=== PATIENT | male | born 1955 | race Caucasian/White ===

== ENCOUNTER 2017-05-21 08:39 | Inpatient (IN) | payer BC ==
[2017-05-17 09:05] VITALS: BP 132/76
[2017-05-17 09:24] LABS: BASOPHILS % (AUTO) 3.5 % (0.0-5.0); EOSINOPHILS % (AUTO) 3.6 % (0.0-8.0); HEMATOCRIT 46.8 % (42-54); LYMPHOCYTES % (AUTO) 34.5 % (21.0-51.0); MEAN CORPUSCULAR HEMOGLOBIN 27.7 pg (27.0-33.0); MEAN CORPUSCULAR HGB CONC 33.7 g/dL (32.0-36.0); MEAN CORPUSCULAR VOLUME 82.4 fL (79-99); MONOCYTES % (AUTO) 10.4 % (3.0-13.0); PLATELET COUNT (AUTO) 308 K/uL (130-400); RED BLOOD CELL COUNT(AUTO) 5.68 MIL/uL (4.50-6.20); RED CELL DISTRIBUTION WIDTH 13.8 % (11.0-15.5); WHITE BLOOD COUNT (AUTO) 9.7 K/uL (4.8-10.8)
[2017-05-17 09:25] LABS: APPEARANCE,URINE Clear (CLEAR); BILIRUBIN,URINE Negative (NEGATIVE); COLOR,URINE Yellow (YELLOW); GLUCOSE, URINE (UA) Negative (NEGATIVE); KETONES,URINE Negative (NEGATIVE); LEUKOCYTE ESTERASE ,URINE Negative (NEGATIVE); NITRATE,URINE Negative (NEGATIVE); OCCULT BLOOD,URINE Negative (NEGATIVE); PROTEIN,URINE Negative (NEGATIVE); UROBILINOGEN,URINE 0.2 mg/dL (0.2-1.0)
[2017-05-17 09:33] LABS: CREATININE 0.9 mg/dL (0.5-1.5); POTASSIUM 4.6 mmol/L (3.5-5.1)
[2017-05-17 09:41] LABS: INR 0.96 (0.85-1.15); PARTIAL THROMBOPLASTIN TIME 28.5 SEC (26.3-35.5); PROTHROMBIN TIME 10.1 SEC (9.6-11.6)
[~2017-05-21] VITALS: Ht 185.4 cm; Wt 109.2 kg
[2017-05-21] VITALS (18 sets, daily range): BP systolic 97–155; BP diastolic 62–84
[~2017-05-21 08:39] MED LIST: ASPI-555 PO; ATOR20TA65 PO
[2017-05-21] MEDS ORDERED: SODIUM CHLORIDE 0.9% 1000ML 1,000 ML IV ONE (09:29)
[2017-05-21] MEDS ORDERED: HEPARIN SODIUM 1000UNIT/ML 10ML VIAL ONE (11:32)
[2017-05-21] MEDS ORDERED: NITROGLYCERIN 5 MG/ML 10 ML VIAL IV ONE (11:32)
[2017-05-21] MEDS ORDERED: LIDOCAINE HCL 2% 20ML ONE (11:32)
[2017-05-21] MEDS ORDERED: IOPAMIDOL-370 100 ML VIAL IV ONE (11:32)
[2017-05-21] MEDS ORDERED: SODIUM BICARB 50MEQ 50ML VIAL ONE (11:32)
[2017-05-21] MEDS ORDERED: ISOVUE-370 50ML VIAL IV ONE (11:32)
[2017-05-21] MEDS ORDERED: SODIUM CHLORIDE 0.9% 1000ML 1,000 ML IV SCH (12:25)
[2017-05-21] MEDS ORDERED: CEFUROXIME 1.5GM+NS 100ML 100 ML IV SCH (12:30)
[2017-05-21] MEDS ORDERED: CEFUROXIME SODIUM 1.5 GM VIAL IVP SCH (13:00)
[2017-05-21] MEDS ORDERED: WATER FOR INJECTION,STERILE 20 ML VIAL IJ SCH (13:00)
[2017-05-21 14:37] LABS: HEMOGLOBIN A1C 5.8 % (4.0-6.0)
[2017-05-21 14:47] LABS: CHOLESTEROL 167 mg/dL (<200); HDL CHOLESTEROL 27 mg/dL (29-71); LDL DIRECT 107 mg/dL (0-99); TRIGLYCERIDES 242 mg/dL (30-200)
[2017-05-21] MEDS ORDERED: ATORVASTATIN CALCIUM 20 MG TABLET PO SCH (21:00)
[2017-05-22] VITALS (18 sets, daily range): BP systolic 104–184; BP diastolic 54–105
[2017-05-22 05:45] LABS: HEMATOCRIT 49.3 % (42-54); MEAN CORPUSCULAR HEMOGLOBIN 27.5 pg (27.0-33.0); MEAN CORPUSCULAR HGB CONC 33.3 g/dL (32.0-36.0); MEAN CORPUSCULAR VOLUME 82.6 fL (79-99); PLATELET COUNT (AUTO) 328 K/uL (130-400); RED BLOOD CELL COUNT(AUTO) 5.97 MIL/uL (4.50-6.20); RED CELL DISTRIBUTION WIDTH 13.5 % (11.0-15.5); WHITE BLOOD COUNT (AUTO) 13.8 K/uL (4.8-10.8)
[2017-05-22 05:54] LABS: INR 1.05 (0.85-1.15); PARTIAL THROMBOPLASTIN TIME 29.2 SEC (26.3-35.5)
[2017-05-22 05:58] LABS: BAND NEUTROPHILS % (MANUAL) 3 % (0-2); BASOPHILS % (MANUAL) 1 % (0-2); BILIRUBIN,TOTAL 0.5 mg/dL (0.2-1.0); EOSINOPHILS % (MANUAL) 1 % (1-6); LYMPHOCYTES % (MANUAL) 23 % (22-44); MAN.DIFF COMMENT-IMPRESSION MANUAL DIFFERENTIAL; MONOCYTES % (MANUAL) 11 % (2-9); PLATELET MORPHOLOGY COMMENT ADEQUATE; POTASSIUM 5.1 mmol/L (3.5-5.1); SEGMENTED NEUTROPHILS % 61 % (40-70); TOTAL PROTEIN, SERUM 8.2 g/dL (6.0-8.3)
[2017-05-22] MEDS ORDERED: ASPIRIN 81 MG EC TAB PO SCH (09:00)
[2017-05-22] MEDS ORDERED: PAPAVERINE HCL 30 MG/ML 2ML VIAL ONE (09:07)
[2017-05-22] MEDS ORDERED: OCTYL 2-CYANOACRYLATE 1 EACH TP ONE (09:07)
[2017-05-22] MEDS ORDERED: BACITRACIN 50,000 UNIT VIAL ONE (09:08)
[2017-05-22] MEDS ORDERED: NITROGLYCERIN 50 MG/D5% WATER 1 BOT ONE (09:21)
[2017-05-22] MEDS ORDERED: SODIUM CHLORIDE 0.9% 1000ML 1,000 ML IV ONE (09:22)
[2017-05-22] MEDS ORDERED: WATER FOR INJECTION,STERILE 20 ML VIAL IJ SCH (10:00)
[2017-05-22] MEDS ORDERED: CEFUROXIME SODIUM 1.5 GM VIAL IVP SCH (10:00)
[2017-05-22] MEDS ORDERED: BUPIVACAINE/PF 0.5% 30ML VIAL ONE (10:11)
[2017-05-22] MEDS ORDERED: ESMOLOL HCL 10 MG/ML 10 ML VIAL ONE (10:13)
[2017-05-22] MEDS ORDERED: MILRINONE-D5W 20 MG/100 ML 0 ML IV ONE (10:13)
[2017-05-22] MEDS ORDERED: EPINEPHRINE 1 MG/ML AMPULE ONE (10:13)
[2017-05-22] MEDS ORDERED: PROPOFOL 10 MG/ML 20ML VIAL IV ONE (10:13)
[2017-05-22] MEDS ORDERED: AMINOCAPROIC ACID 250 MG/ML 20 ML VIAL IV ONE (10:13)
[2017-05-22] MEDS ORDERED: LIDOCAINE PF 2% 5ML ABBOJECT ONE (10:13)
[2017-05-22] MEDS ORDERED: HEPARIN SODIUM 1000UNIT/ML 10ML VIAL ONE ×2 (10:13→10:36)
[2017-05-22] MEDS ORDERED: PROTAMINE SULFATE 10 MG/ML 25ML VIAL IV ONE (10:13)
[2017-05-22] MEDS ORDERED: MIDAZOLAM HCL 1 MG/ML 5ML VIAL ONE (10:13)
[2017-05-22] MEDS ORDERED: FENTANYL CITRATE PF 50 MCG/1 ML 20ML VIAL IJ ONE (10:13)
[2017-05-22] MEDS ORDERED: AMIODARONE HCL 900MG/18ML IV ONE (10:13)
[2017-05-22] MEDS ORDERED: GLYCOPYRROLATE 0.2 MG/ML 5 ML VIAL ONE (10:13)
[2017-05-22] MEDS ORDERED: ROCURONIUM BROMIDE 10MG/1ML 5ML VL ONE (10:13)
[2017-05-22] MEDS ORDERED: NOREPINEPHRINE BITARTRATE 1 MG/1 ML ML IV ONE (10:13)
[2017-05-22] MEDS ORDERED: THROMBIN-JMI 5000 UNIT/VIAL TP ONE (10:37)
[2017-05-22 11:00] LABS: ABG BASE EXCESS -2.7 mmol/L (-2.0-3.0); ABG HCO3 22.2 mmol/L (21.0-28.0); ABG OXYGEN SATURATION 98.8 % (95.0-99.0); ABG PCO2 39 mmHg (35-48)
[2017-05-22] MEDS ORDERED: SODIUM BICARB 50MEQ 50ML VIAL ONE (12:24)
[2017-05-22] MEDS ORDERED: SODIUM CHLORIDE 0.9% 500ML 500 ML IV SCH (12:34)
[2017-05-22] MEDS ORDERED: SODIUM BICARB 8.4% 50ML SYRINGE IV PRN (12:45)
[2017-05-22] MEDS ORDERED: POTASSIUM PHOS 15 mMOL+NS250ML 250 ML IV PRN (12:45)
[2017-05-22] MEDS ORDERED: ACETAMINOPHEN 325 MG TAB PO PRN (12:45)
[2017-05-22] MEDS ORDERED: NOREPINEPHRINE 4MG/NS 250ML 250 ML IV PRN (12:45)
[2017-05-22] MEDS ORDERED: DEXTROSE 50%-WATER 50 ML DISP.SYRIN IV PRN (12:45)
[2017-05-22] MEDS ORDERED: SODIUM CHLORIDE 0.9% 1000ML 1,000 ML IV SCH (12:45)
[2017-05-22] MEDS ORDERED: GLUCAGON 1MG KIT 1 MG ML IM PRN (12:45)
[2017-05-22] MEDS ORDERED: PROPOFOL 1000 MG/100 ML 100 ML IV PRN (12:45)
[2017-05-22] MEDS ORDERED: ALBUMIN (HUMAN) 5% 250 ML IV PRN (12:45)
[2017-05-22] MEDS ORDERED: MORPHINE SULFATE 2 MG/ML 1ML SYG IV PRN (12:45)
[2017-05-22] MEDS ORDERED: SODIUM CHLORIDE 0.9% 250 ML IV PRN (12:45)
[2017-05-22] MEDS ORDERED: NITROGLYCERIN 50 MG/D5% WATER 250 BOT IV SCH (12:45)
[2017-05-22] MEDS ORDERED: MAGNESIUM 2GM PREMIX 50ML 50 ML IV PRN (12:45)
[2017-05-22] MEDS ORDERED: POTASSIUM CHLORIDE 20MEQ/100ML 100 ML IV PRN (12:45)
[2017-05-22] MEDS ORDERED: CALCIUM GLUCONATE 1 GM in SODIUM CHLORIDE 0.9% 50 ML IV PRN (12:45)
[2017-05-22] MEDS ORDERED: NICARDIPINE HCL 100 MG in SODIUM CHLORIDE 0.9% 100 ML IV PRN (12:45)
[2017-05-22] MEDS ORDERED: HYDROCODONE/ACETAMINOPHEN 5/325 MG TAB PO PRN (12:45)
[2017-05-22] MEDS ORDERED: SODIUM CHLORIDE 0.9% 10 ML VIAL IVP PRN (12:45)
[2017-05-22] MEDS ORDERED: AMINOCAPROIC ACID 15,000 MG in SODIUM CHLORIDE 0.9% 250 ML IV SCH (12:45)
[2017-05-22] MEDS ORDERED: ONDANSETRON HCL 4 MG/2 ML VIAL IV PRN (12:45)
[2017-05-22] MEDS ORDERED: ACETAMINOPHEN 650 MG SUPPOSITORY RC PRN (12:45)
[2017-05-22] MEDS ORDERED: INSULIN REGULAR, HUMAN 3ML 100 UNIT in SODIUM CHLORIDE 0.9% 99 ML IV SCH ×2 (12:45)
[2017-05-22 13:16] LABS: ABG BASE EXCESS -2.6 mmol/L (-2.0-3.0); ABG HCO3 21.4 mmol/L (21.0-28.0); ABG OXYGEN SATURATION 99.1 % (95.0-99.0); ABG PCO2 35 mmHg (35-48)
[2017-05-22] MEDS ORDERED: FENTANYL CITRATE PF 50 MCG/1 ML 2ML VIAL ONE ×2 (13:26)
[2017-05-22 13:58] LABS: HEMATOCRIT 43.1 % (42-54); MEAN CORPUSCULAR HEMOGLOBIN 27.2 pg (27.0-33.0); MEAN CORPUSCULAR HGB CONC 33.1 g/dL (32.0-36.0); MEAN CORPUSCULAR VOLUME 82.1 fL (79-99); PLATELET COUNT (AUTO) 314 K/uL (130-400); RED BLOOD CELL COUNT(AUTO) 5.25 MIL/uL (4.50-6.20); RED CELL DISTRIBUTION WIDTH 13.4 % (11.0-15.5); WHITE BLOOD COUNT (AUTO) 29.2 K/uL (4.8-10.8)
[2017-05-22] MEDS: MORPHINE SULFATE 4 MG/1ML SYG IV PRN ×2 (14:00→15:01)
[2017-05-22 14:21] LABS: ABG BASE EXCESS -1.7 mmol/L (-2.0-3.0); ABG HCO3 24.8 mmol/L (21.0-28.0); ABG OXYGEN SATURATION 92.7 % (95.0-99.0); ABG PCO2 48 mmHg (35-48)
[2017-05-22 14:24] LABS: MAGNESIUM 1.5 mg/dL (1.80-2.40); PHOSPHORUS 3.6 mg/dL (2.5-4.9); POTASSIUM 4.2 mmol/L (3.5-5.1)
[2017-05-22 15:51] LABS: ABG BASE EXCESS -1.8 mmol/L (-2.0-3.0); ABG HCO3 25.2 mmol/L (21.0-28.0); ABG OXYGEN SATURATION 95.7 % (95.0-99.0); ABG PCO2 51 mmHg (35-48)
[2017-05-22 16:52] LABS: ABG BASE EXCESS -4.5 mmol/L (-2.0-3.0); ABG HCO3 21.7 mmol/L (21.0-28.0); ABG OXYGEN SATURATION 92.7 % (95.0-99.0); ABG PCO2 44 mmHg (35-48)
[2017-05-22] MEDS: HYDROCODONE/ACETAMINOPHEN 5/325 MG TAB PO PRN ×2 (17:46→21:25)
[2017-05-22] MEDS ORDERED: CEFUROXIME 1.5GM+NS 100ML 100 ML IV SCH (20:45)
[2017-05-22] MEDS: CEFUROXIME SODIUM 1.5 GM VIAL IVP SCH (21:12)
[2017-05-23] VITALS (23 sets, daily range): BP systolic 96–140; BP diastolic 56–87
[2017-05-23] MEDS: HYDROCODONE/ACETAMINOPHEN 5/325 MG TAB PO PRN ×2 (00:31→04:34)
[2017-05-23 04:02] LABS: HEMATOCRIT 45.6 % (42-54); MEAN CORPUSCULAR HEMOGLOBIN 27.2 pg (27.0-33.0); MEAN CORPUSCULAR HGB CONC 32.9 g/dL (32.0-36.0); MEAN CORPUSCULAR VOLUME 82.6 fL (79-99); PLATELET COUNT (AUTO) 336 K/uL (130-400); RED BLOOD CELL COUNT(AUTO) 5.51 MIL/uL (4.50-6.20); RED CELL DISTRIBUTION WIDTH 13.8 % (11.0-15.5); WHITE BLOOD COUNT (AUTO) 25.3 K/uL (4.8-10.8)
[2017-05-23 04:19] LABS: MAGNESIUM 2.2 mg/dL (1.80-2.40); POTASSIUM 4.5 mmol/L (3.5-5.1)
[2017-05-23] MEDS: METOPROLOL TARTRATE 25 MG TAB PO SCH ×2 (08:32→20:20)
[2017-05-23] MEDS: KETOROLAC TROMETHAMINE 30MG/ML IV SCH ×3 (08:32→20:19)
[2017-05-23] MEDS: ASPIRIN 81MG TAB.CHEW PO SCH (08:32)
[2017-05-23] MEDS: GABAPENTIN 300 MG CAPSULE PO SCH ×3 (08:32→22:09)
[2017-05-23] MEDS: CEFUROXIME SODIUM 1.5 GM VIAL IVP SCH ×2 (08:33→20:19)
[2017-05-23] MEDS ORDERED: PANTOPRAZOLE 40 MG/VIAL IV SCH (09:00)
[2017-05-23] MEDS: IPRATROPIUM/ALBUTEROL SULFATE 3 ML SOLUTION IH SCH ×3 (11:03→23:35)
[2017-05-23] MEDS: ATORVASTATIN CALCIUM 10 MG TABLET PO SCH (20:20)
[2017-05-24] VITALS (18 sets, daily range): BP systolic 100–137; BP diastolic 52–74
[2017-05-24] MEDS: KETOROLAC TROMETHAMINE 30MG/ML IV SCH ×4 (01:57→20:08)
[2017-05-24 05:18] LABS: HEMATOCRIT 37.8 % (42-54); MEAN CORPUSCULAR HGB CONC 33.9 g/dL (32.0-36.0); MEAN CORPUSCULAR VOLUME 82.5 fL (79-99); PLATELET COUNT (AUTO) 283 K/uL (130-400); RED BLOOD CELL COUNT(AUTO) 4.58 MIL/uL (4.50-6.20); RED CELL DISTRIBUTION WIDTH 13.8 % (11.0-15.5); WHITE BLOOD COUNT (AUTO) 20.7 K/uL (4.8-10.8)
[2017-05-24 05:25] LABS: CREATININE 1.2 mg/dL (0.5-1.5); MAGNESIUM 2.6 mg/dL (1.80-2.40); POTASSIUM 4.4 mmol/L (3.5-5.1)
[2017-05-24] MEDS: GABAPENTIN 300 MG CAPSULE PO SCH ×3 (06:06→20:11)
[2017-05-24] MEDS: IPRATROPIUM/ALBUTEROL SULFATE 3 ML SOLUTION IH SCH ×4 (06:39→23:43)
[2017-05-24] MEDS: PANTOPRAZOLE SODIUM 40 MG TABLET.DR PO SCH (07:56)
[2017-05-24] MEDS: ASPIRIN 81MG TAB.CHEW PO SCH (08:00)
[2017-05-24] MEDS: METOPROLOL TARTRATE 25 MG TAB PO SCH ×2 (08:00→20:08)
[2017-05-24] MEDS: ATORVASTATIN CALCIUM 10 MG TABLET PO SCH (20:09)
[2017-05-25 00:22] VITALS: BP 118/62
[2017-05-25] MEDS: KETOROLAC TROMETHAMINE 30MG/ML IV SCH ×3 (02:37→14:02)
[2017-05-25 05:06] VITALS: BP 141/74
[2017-05-25] MEDS: IPRATROPIUM/ALBUTEROL SULFATE 3 ML SOLUTION IH SCH ×4 (06:15→23:52)
[2017-05-25] MEDS: PANTOPRAZOLE SODIUM 40 MG TABLET.DR PO SCH (06:36)
[2017-05-25] MEDS: GABAPENTIN 300 MG CAPSULE PO SCH ×3 (06:36→20:03)
[2017-05-25 07:06] VITALS: BP 126/62
[2017-05-25] MEDS: FUROSEMIDE 20 MG TABLET PO SCH ×2 (08:25→16:25)
[2017-05-25] MEDS: ASPIRIN 81MG TAB.CHEW PO SCH (08:25)
[2017-05-25] MEDS: METOPROLOL TARTRATE 25 MG TAB PO SCH ×2 (08:25→20:03)
[2017-05-25] MEDS: ENOXAPARIN SODIUM 30 MG/0.3 ML SQ SCH (08:26)
[2017-05-25 10:53] VITALS: BP 107/57
[2017-05-25] MEDS: SENNOSIDES 8.6 MG TABLET PO SCH (14:02)
[2017-05-25 16:18] VITALS: BP 127/64
[2017-05-25 19:57] VITALS: BP 108/66
[2017-05-25] MEDS: ATORVASTATIN CALCIUM 10 MG TABLET PO SCH (20:03)
[2017-05-25] MEDS: ALPRAZOLAM 0.5 MG TABLET PO PRN (21:40)
[2017-05-26 04:09] VITALS: BP 135/73
[2017-05-26 04:09] LABS: ABG HCO3 25.3 mmol/L (21.0-28.0); ABG OXYGEN SATURATION 86.7 % (95.0-99.0); ABG PCO2 36 mmHg (35-48)
[2017-05-26 04:30] LABS: BASOPHILS % (AUTO) 1.1 % (0.0-5.0); EOSINOPHILS % (AUTO) 2.1 % (0.0-8.0); HEMATOCRIT 38.9 % (42-54); LYMPHOCYTES % (AUTO) 14.8 % (21.0-51.0); MEAN CORPUSCULAR HEMOGLOBIN 26.9 pg (27.0-33.0); MEAN CORPUSCULAR HGB CONC 32.8 g/dL (32.0-36.0); PLATELET COUNT (AUTO) 347 K/uL (130-400); RED BLOOD CELL COUNT(AUTO) 4.74 MIL/uL (4.50-6.20); RED CELL DISTRIBUTION WIDTH 13.7 % (11.0-15.5); WHITE BLOOD COUNT (AUTO) 15.8 K/uL (4.8-10.8)
[2017-05-26 04:40] LABS: POTASSIUM 4.4 mmol/L (3.5-5.1)
[2017-05-26] MEDS: GABAPENTIN 300 MG CAPSULE PO SCH ×3 (05:16→21:10)
[2017-05-26] MEDS: IPRATROPIUM/ALBUTEROL SULFATE 3 ML SOLUTION IH SCH ×4 (06:12→23:35)
[2017-05-26 07:00] VITALS: BP 131/93
[2017-05-26] MEDS: FUROSEMIDE 20 MG TABLET PO SCH ×2 (08:47→16:27)
[2017-05-26] MEDS: PANTOPRAZOLE SODIUM 40 MG TABLET.DR PO SCH (08:47)
[2017-05-26] MEDS: ASPIRIN 81MG TAB.CHEW PO SCH (08:47)
[2017-05-26] MEDS: METOPROLOL TARTRATE 25 MG TAB PO SCH ×2 (08:47→19:45)
[2017-05-26] MEDS: ENOXAPARIN SODIUM 30 MG/0.3 ML SQ SCH (08:51)
[2017-05-26 11:00] VITALS: BP 105/67
[2017-05-26] MEDS ORDERED: IOPAMIDOL-370 100 ML VIAL IV ONE (12:14)
[2017-05-26] MEDS: SENNOSIDES 8.6 MG TABLET PO SCH (12:39)
[2017-05-26] MEDS: FUROSEMIDE 10 MG/ML 2ML VIAL IV SCH (14:48)
[2017-05-26 16:00] VITALS: BP 108/49
[2017-05-26] MEDS: BUDESONIDE 0.5 MG/2 ML INH IH SCH (18:03)
[2017-05-26 19:33] VITALS: BP 124/61
[2017-05-26] MEDS: ATORVASTATIN CALCIUM 10 MG TABLET PO SCH (19:45)
[2017-05-26] MEDS: ALPRAZOLAM 0.5 MG TABLET PO PRN (23:15)
[2017-05-26 23:32] VITALS: BP 123/76
[2017-05-27 04:39] LABS: MEAN CORPUSCULAR HEMOGLOBIN 27.5 pg (27.0-33.0); MEAN CORPUSCULAR HGB CONC 33.4 g/dL (32.0-36.0); MEAN CORPUSCULAR VOLUME 82.2 fL (79-99); PLATELET COUNT (AUTO) 402 K/uL (130-400); RED BLOOD CELL COUNT(AUTO) 4.86 MIL/uL (4.50-6.20); RED CELL DISTRIBUTION WIDTH 13.4 % (11.0-15.5)
[2017-05-27 04:44] LABS: MAGNESIUM 2.1 mg/dL (1.80-2.40); POTASSIUM 4.5 mmol/L (3.5-5.1)
[2017-05-27 05:32] LABS: B-TYPE NATRIURETIC PEPTIDE 103 pg/mL (0-100)
[2017-05-27] MEDS: BUDESONIDE 0.5 MG/2 ML INH IH SCH ×2 (06:06→18:56)
[2017-05-27] MEDS: IPRATROPIUM/ALBUTEROL SULFATE 3 ML SOLUTION IH SCH ×3 (06:06→18:35)
[2017-05-27] MEDS: GABAPENTIN 300 MG CAPSULE PO SCH ×3 (06:14→20:06)
[2017-05-27 07:43] VITALS: BP 113/73
[2017-05-27] MEDS: METOPROLOL TARTRATE 25 MG TAB PO SCH ×2 (08:49→20:07)
[2017-05-27] MEDS: ASPIRIN 81MG TAB.CHEW PO SCH (08:49)
[2017-05-27] MEDS: PANTOPRAZOLE SODIUM 40 MG TABLET.DR PO SCH (08:49)
[2017-05-27] MEDS: ENOXAPARIN SODIUM 40 MG/0.4 ML SYRINGE SQ SCH (08:50)
[2017-05-27] MEDS: FUROSEMIDE 20 MG TABLET PO SCH ×2 (08:50→17:47)
[2017-05-27] MEDS ORDERED: FUROSEMIDE 10 MG/ML 4ML VIAL IV SCH (09:30)
[2017-05-27 11:17] VITALS: BP 125/77
[2017-05-27] MEDS: FUROSEMIDE 10 MG/ML 2ML VIAL IV SCH (12:33)
[2017-05-27] MEDS: SENNOSIDES 8.6 MG TABLET PO SCH (13:30)
[2017-05-27 16:22] VITALS: BP 117/73
[2017-05-27 19:26] VITALS: BP 106/66
[2017-05-27] MEDS: ALPRAZOLAM 0.5 MG TABLET PO PRN (20:06)
[2017-05-27] MEDS: ATORVASTATIN CALCIUM 10 MG TABLET PO SCH (20:06)
[2017-05-27 23:35] VITALS: BP 128/93
[2017-05-28] MEDS: IPRATROPIUM/ALBUTEROL SULFATE 3 ML SOLUTION IH SCH ×3 (00:16→11:16)
[2017-05-28 03:40] VITALS: BP 112/75
[2017-05-28 04:01] LABS: HEMATOCRIT 40.5 % (42-54); MEAN CORPUSCULAR HEMOGLOBIN 27.1 pg (27.0-33.0); MEAN CORPUSCULAR HGB CONC 32.7 g/dL (32.0-36.0); MEAN CORPUSCULAR VOLUME 82.8 fL (79-99); PLATELET COUNT (AUTO) 446 K/uL (130-400); RED BLOOD CELL COUNT(AUTO) 4.89 MIL/uL (4.50-6.20); RED CELL DISTRIBUTION WIDTH 13.3 % (11.0-15.5); WHITE BLOOD COUNT (AUTO) 16.2 K/uL (4.8-10.8)
[2017-05-28 04:12] LABS: PHOSPHORUS 3.9 mg/dL (2.5-4.9); POTASSIUM 4.6 mmol/L (3.5-5.1)
[2017-05-28 04:19] LABS: B-TYPE NATRIURETIC PEPTIDE 85 pg/mL (0-100)
[2017-05-28 04:23] LABS: ABG BASE EXCESS 2.2 mmol/L (-2.0-3.0); ABG HCO3 26.7 mmol/L (21.0-28.0); ABG OXYGEN SATURATION 92.4 % (95.0-99.0); ABG PCO2 41 mmHg (35-48)
[2017-05-28] MEDS: PANTOPRAZOLE SODIUM 40 MG TABLET.DR PO SCH (05:37)
[2017-05-28] MEDS: GABAPENTIN 300 MG CAPSULE PO SCH ×2 (05:37→14:00)
[2017-05-28] MEDS: BUDESONIDE 0.5 MG/2 ML INH IH SCH (05:57)
[2017-05-28 07:39] VITALS: BP 105/67
[2017-05-28] MEDS: METOPROLOL TARTRATE 25 MG TAB PO SCH (08:55)
[2017-05-28] MEDS: FUROSEMIDE 20 MG TABLET PO SCH ×2 (08:55→17:07)
[2017-05-28] MEDS: ENOXAPARIN SODIUM 40 MG/0.4 ML SYRINGE SQ SCH (08:55)
[2017-05-28] MEDS: ASPIRIN 81MG TAB.CHEW PO SCH (08:55)
[2017-05-28 11:19] VITALS: BP 125/74
[2017-05-28] MEDS: SENNOSIDES 8.6 MG TABLET PO SCH (13:30)
[2017-05-28] MEDS: FUROSEMIDE 10 MG/ML 2ML VIAL IV SCH (13:30)
[2017-05-28] MEDS ORDERED: TIOT18CA3 IH (15:17)
[2017-05-28] MEDS ORDERED: ALBU8.5H8 IH (15:17)
== END 2017-05-28 17:30 | disposition home or self-care (01) | DRG 233 ==
LOC: DAH 08:39 → DAHIP 12:35 → DAH 12:35 → 2CH 16:07 → DAHIP 16:07 → 2CV 05-22 09:23 → 2CH 05-23 05:15 → 2DH 05-24 18:30
PROVIDERS: ADMIT Internal Medicine; ATTEND Internal Medicine
PROC: 4A023N7 Measurement of Cardiac Sampling and Pressure, Left Heart, Percutaneous Approach (ICD-10-PCS; 2017-05-21)
PROC: B2111ZZ Fluoroscopy of Multiple Coronary Arteries using Low Osmolar Contrast (ICD-10-PCS; 2017-05-21)
PROC: B2151ZZ Fluoroscopy of Left Heart using Low Osmolar Contrast (ICD-10-PCS; 2017-05-21)
PROC: 06BP4ZZ Excision of Right Saphenous Vein, Percutaneous Endoscopic Approach (ICD-10-PCS; 2017-05-22)
PROC: 3E0 Administration, Physiological Systems and Anatomical Regions, Introduction (ICD-10-PCS; 2017-05-22)
PROC: 02100Z9 Bypass Coronary Artery, One Artery from Left Internal Mammary, Open Approach (ICD-10-PCS; principal; 2017-05-22 10:00)
PROC: 021109W Bypass Coronary Artery, Two Arteries from Aorta with Autologous Venous Tissue, Open Approach (ICD-10-PCS; 2017-05-22 10:00)
DX: I25.119 Atherosclerotic heart disease of native coronary artery with unspecified angina pectoris (principal); I50.33 Acute on chronic diastolic (congestive) heart failure; J96.00 Acute respiratory failure, unspecified whether with hypoxia or hypercapnia; R57.9 Shock, unspecified; K56.7 Ileus, unspecified; E11.51 Type 2 diabetes mellitus with diabetic peripheral angiopathy without gangrene; J44.9 Chronic obstructive pulmonary disease, unspecified; E78.5 Hyperlipidemia, unspecified; G47.33 Obstructive sleep apnea (adult) (pediatric); I11.0 Hypertensive heart disease with heart failure; M54.9 Dorsalgia, unspecified; G89.29 Other chronic pain; Y90.9 Presence of alcohol in blood, level not specified; D72.829 Elevated white blood cell count, unspecified; F10.20 Alcohol dependence, uncomplicated; G47.00 Insomnia, unspecified; Z79.82 Long term (current) use of aspirin; Z79.899 Other long term (current) drug therapy; Z72.0 Tobacco use
CPT/HCPCS: 36415; 36600; 71045; 71046; 71275; 80048; 80053; 80061; 81003; 82330; 82435; 82803; 82947; 82948; 83036; 83605; 83735; 83880; 84100; 84132; 84295; 85018; 85025; 85027; 85347; 85610; 85730; 86850; 86900; 86901; 86922; 93005; 93458; 93880; 93970; 94002; 94010; 94640; 94664; 94667; 94668; 94760; 97039; A4218; A7048; C1894; C9113; J0171; J0282; J0697; J1644; J1650; J1815; J1885; J1940; J2001; J2250; J2260; J2270; J2405; J2440; J2704; J2720; J3010; J3475; J3490; J7030; J7040; J7120; Q9967

== ENCOUNTER → 2017-12-25 | Outpatient (CLI) | payer BC ==
[~2017-12-25] MED LIST changes: +ALBU8.5H8 IH; +TIOT18CA3 IH
== END | disposition home or self-care (01) ==
LOC: SLP 20:26
PROVIDERS: ATTEND Internal Medicine
DX: G47.33 Obstructive sleep apnea (adult) (pediatric) (principal); I10 Essential (primary) hypertension; E78.5 Hyperlipidemia, unspecified; Z87.891 Personal history of nicotine dependence
CPT/HCPCS: 95810

== ENCOUNTER → 2017-12-30 | Outpatient (CLI) | payer BC | END | disposition home or self-care (01) | LOC: SLP 20:38 | PROVIDERS: ATTEND Internal Medicine | DX: G47.33 Obstructive sleep apnea (adult) (pediatric) (principal); Z72.89 Other problems related to lifestyle; I11.0 Hypertensive heart disease with heart failure; I50.32 Chronic diastolic (congestive) heart failure; E11.51 Type 2 diabetes mellitus with diabetic peripheral angiopathy without gangrene; J43.9 Emphysema, unspecified; I25.10 Atherosclerotic heart disease of native coronary artery without angina pectoris; Z87.891 Personal history of nicotine dependence | CPT/HCPCS: 95811 ==

== ENCOUNTER → 2018-01-16 | Outpatient (CLI) | payer BC | END | disposition home or self-care (01) | LOC: RAH 09:26 | PROVIDERS: ATTEND Internal Medicine | DX: J98.6 Disorders of diaphragm (principal) | CPT/HCPCS: 76000 ==